=== PATIENT | female | born 1960 | race Caucasian/White ===

== ENCOUNTER 2021-02-05 08:21 | Emergency (ER) | payer OTHER ==
[~2021-02-05] VITALS: Ht 152.4 cm; Wt 65.8 kg
--- NOTE | ~2021-02-05 | EMS ---
[place] [id number] EMS Patient Care Report Name: SHREYA VIGIL Room #: DEP Chris#: [id number] Admission: 02/05/21 Attend Phys: Discharge: 02/05/21 Date of : 64 Report #: [id number] THIS REPORT FOR: //name// Report Transmitted: 02/05/2021 09:19 EMS Care Summary [place], [place]/[facility] Incident [id number] @ 02/05/2021 07:41 Incident Location [facility] / [place] [address] Patient SHREYA VIGIL Female, 60 Years 1960 Patient Address [address] [place] [address] Patient History Asthma,Anxiety, Patient Allergies No known allergies, Patient Medications None Reported, Chief Complaint chest pain Disposition Transported No Lights/[place] Reason Chest Pain (Non-Traumatic) Transported To [facility] Narrative pt found sitting upright on sidewalk and alert. pt a&ox4 gcs 15 and did not present in apparent distress. pt complained of cp to center of chest x1 hr. pt stated she has been walking outside for hours. pt agreed to be transported to [facility]. pt walked into ambulance. pt was transferred onto ems cot and was secured [place] [id number] EMS Patient Care Report Name: SHREYA VIGIL Room #: DEP ER HalRenaldo#: [id number] Admission: 02/05/21 Attend Phys: Discharge: 02/05/21 Date of : 64 Report #: [id number] in a semi fowlers position without incident. a 12-lead ekg was obtained revealing nsr and was unremarkable. pts hands are cold and effected quality of spo2 reading. iv access was sought after but was not attempted due to no available vasculature. pt was administered 324mg asa po. pt was transported non emergent. transport was uneventful and pt rested on ems cot. pt care was transferred to appropriate staff and ems goes back in service. pts coat and purse was left with pt. Initial Vitals @08:05P: 86,SpO2: 87, @07:59P: 79,CO: 1,SpO2: 99, @08:08P: 84,SpO2: 90, @08:12P: 78,SpO2: 92, @08:02P: 93,CO: 2,SpO2: 81, @08:01P: 87,CO: 1,SpO2: 86, @07:55P: 92,R: 20,BP: 126/80,Pain: 2/10,GCS: 15,SpO2: 100,Revised Trauma: 12, @08:14P: 77,R: 20,BP: 138/100,GCS: 15,SpO2: 88,Revised Trauma: 12, Assessments @07:52MENTAL:No Abnormalities,SKIN:No Abnormalities,HEENT:Head/Face: No Abnormalities,Eyes: No Abnormalities,Neck/Airway: No Abnormalities,LUNG SOUNDS:General: No Abnormalities,Left Upper: No Abnormalities,Right Upper: No Abnormalities,Left Lower: No Abnormalities,Right Lower: No Abnormalities,ABDOMEN:General: No Abnormalities,Left Upper: No Abnormalities,Right Upper: No Abnormalities,Left Lower: No Abnormalities,Right Lower: No Abnormalities,PELVIS//GI:No Abnormalities,EXTREMITIES:Left Arm: No Abnormalities,Right Arm: No Abnormalities,Left Leg: No Abnormalities,Right Leg: No Abnormalities,PULSE:NEURO:No Abnormalities,@07:55MENTAL:No Abnormalities,SKIN:No Abnormalities,HEENT:Head/Face: No Abnormalities,Eyes: No Abnormalities,Neck/Airway: No Abnormalities,LUNG SOUNDS:General: No Abnormalities,Left Upper: No Abnormalities,Right Upper: No Abnormalities,Left Lower: No Abnormalities,Right Lower: No Abnormalities,ABDOMEN:General: No Abnormalities,Left Upper: No Abnormalities,Right Upper: No Abnormalities,Left Lower: No Abnormalities,Right Lower: No Abnormalities,PELVIS//GI:No Abnormalities,EXTREMITIES:Left Arm: No Abnormalities,Right Arm: No Abnormalities,Left Leg: No Abnormalities,Right Leg: No Abnormalities,PULSE:NEURO:No Abnormalities, Impression Chest Pain / Discomfort Procedures @07:52 ALS Assessment Response: UnchangedSucceeded @08:12 Aspirin - 324 Milligrams (mg) - Oral Response: Unchanged @07:59 [place] [address] EMS Patient Care Report Name: SHREYA VIGIL TABITHA Room #: DEP ROBYN Perez#: [id number] Admission: 02/05/21 Attend Phys: Discharge: 02/05/21 Date of : 64 Report #: [id number] Timeline 07:38,Call Received 07:38,Dispatch Notified 07:41,Dispatched 07:42,En Route 07:51,On Scene 07:52,At Patient 07:52,ALS Assessment,Response: UnchangedSucceeded, 07:55,BP: 126/80 M,PULSE: 92,RR: 20 R,SPO2: 100 Ox,ETCO2: ,BG: ,PAIN: 2,GCS: 15, 07:59,12-Lead ECG, 07:59,BP: / M,PULSE: 79,RR: R,SPO2: 99 Ox,ETCO2: ,BG: ,PAIN: ,GCS: , 08:01,BP: / M,PULSE: 87,RR: R,SPO2: 86 Ox,ETCO2: ,BG: ,PAIN: ,GCS: , 08:02,Depart Scene 08:02,BP: / M,PULSE: 93,RR: R,SPO2: 81 Ox,ETCO2: ,BG: ,PAIN: ,GCS: , 08:05,BP: / M,PULSE: 86,RR: R,SPO2: 87 Ox,ETCO2: ,BG: ,PAIN: ,GCS: , 08:08,BP: / M,PULSE: 84,RR: R,SPO2: 90 Ox,ETCO2: ,BG: ,PAIN: ,GCS: , 08:12,Aspirin - 324 Milligrams (mg) - Oral,Response: Unchanged 08:12,BP: / M,PULSE: 78,RR: R,SPO2: 92 Ox,ETCO2: ,BG: ,PAIN: ,GCS: , 08:14,BP: 138/100 M,PULSE: 77,RR: 20 R,SPO2: 88 Ox,ETCO2: ,BG: ,PAIN: ,GCS: 15, 08:18,At Destination 08:32,Call Closed Disclaimer v1.1 Copyright 2020 [employer] This EMS Care Summary contains data elements from the applicable legal record (which may be displayed differently). It is designed to provide pertinent information for the following purposes: continuity of care, clinical quality, and state data reporting. The complete legal record is available to ED staff and administrators of the receiving hospital in [facility]'s Patient Tracker. All data is provided "as is."
[2021-02-05 09:26] VITALS: BP 115/85
--- NOTE | 2021-02-05 15:46 | EKG ---
[address] [address] ELECTROCARDIOGRAM REPORT Name: SHREYA VIGILLE Room #: [facility]P [facility] [id number] Admission: 02/05/21 Attend Phys: Discharge: 02/05/21 Date of : 64 Report #: [id number] [facility] ED Test Date: 2021-02-05 Test Time: 08:28:26 Pat Name: SHREYA VIGIL Department: Room: Gender: F Carbonator: SNEHAL : 1960 Requested By: Yoly Teixeira Order Number: [id number] MD: Raman Malcolm Measurements Intervals [place] Rate: 76 P: 47 GA: 140 QRS: 4 QRSD: 97 T: 33 QT: 362 QTc: 408 Interpretive Statements Sinus rhythm No previous ECG available for comparison Electronically Signed On 02-05-2021 15:46:02 CDT by Raman Malcolm [email or web address] <ELECTRONICALLY SIGNED> By: Raman Malcolm MD, [facility] 02/05/21 1546 0828 0828 Raman Malcolm MD, FACC /EPI
== END 2021-02-05 09:26 | disposition left against medical advice (07) ==
LOC: ER 08:21
DX: R07.89 Other chest pain (principal); Z90.13 Acquired absence of bilateral breasts and nipples; Z98.890 Other specified postprocedural states